=== PATIENT | female | born 1980 | race Caucasian/White ===

== ENCOUNTER 2018-09-13 17:05 | Emergency (ER) | payer OTHER ==
--- NOTE | 2018-09-13 17:25 | ED Physician Documentation ---
PD HPI URI - Stated complaint Stated Complaint: FEVER/COUGH/BODY ACHES - Chief complaint Chief Complaint: Heent - History obtained from History obtained from: Patient - History of Present Illness Timing - onset: Other (Her children were sick before her. Over the last 5 days she has had body aches, fever, nonproductive cough, sore throat and ear pain. 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 - Present Medications Home Medications: Ambulatory Orders Medication Instructions Recorded Confirmed guaiFENesin/CODEINE [Robitussin AC] 5 - 10 ml PO Q6H PRN #120 ml 09/13/18 - Allergies Allergies/Adverse Reactions: Allergies Allergy/AdvReac Type Severity Reaction Status Date / Time No Known Drug Allergies Allergy Verified 09/13/18 17:12 - Social History Does the pt smoke?: No Smoking Status: Never smoker Does the pt drink ETOH?: No Does the pt have substance abuse?: No - Immunizations Immunizations are current?: Yes - POLST Patient has POLST: No PD ED PE NORMAL - Vitals Vital signs reviewed: Yes - General General: Alert and oriented X 3, No acute distress, Well developed/nourished - HEENT HEENT: PERRL, EOMI, Ears normal, Pharynx benign - Neck Neck: Supple, no meningeal sign, No bony TTP - Respiratory Respiratory: No respiratory distress, Clear bilaterally - Abdomen Abdomen: Non tender - Neuro Neuro: Alert and oriented X 3, Normal speech Results - Vitals Vitals: Vital Signs - 24 hr 09/13/18 17:11 Temperature 36 C L Heart Rate 107 H Respiratory 18 Rate Blood Pressure 130/83 H O2 Saturation 100 Oxygen O2 Source Room air - Rads (name of study) 2V CHEST Radiology: EMP read contemporaneously (NORMAL) PD MEDICAL DECISION MAKING - ED course ED course: Healthy young woman with 5 days of illness consistent with influenza. Really no point in testing or treating for same at this juncture given the time course and lack of efficacy of antivirals at this point. Given the protracted course I will obtain a chest x-ray to make sure there is no concomitant pneumonia. Departure - Departure Disposition: 01 Home, Self Care Clinical Impression: Influenza Condition: Good Record reviewed to determine appropriate education?: Yes Instructions: ED Flu Prescriptions: guaiFENesin/CODEINE [Robitussin AC] 5 - 10 ml PO Q6H PRN #120 ml PRN Reason: Cough Comments: If not better in the next 3-4 days please return or see YOUr physician for recheck. Return for new or worsening symptoms. Your blood pressure was elevated today on check into the emergency department. This does not mean that you have hypertension, it is a common phenomenon to come to the emergency department and have elevated blood pressure. I recommend that you see your primary care physician within the week to have it rechecked when you are feeling better. Forms: Activity restrictions
--- NOTE | 2018-09-13 20:03 | XRAY Report ---
Reason: cough Procedure Date: 09/13/2018 Accession Number: [id number] / [id number] Procedure: XR - Chest 2 View X-Ray CPT Code: 98111 FULL RESULT: EXAM: CHEST RADIOGRAPHY EXAM DATE: 09/13/2018 07:37 PM. CLINICAL HISTORY: Cough. COMPARISON: None. TECHNIQUE: 2 views. FINDINGS: Lungs/Pleura: No focal opacities evident. No pleural effusion. No pneumothorax. Normal volumes. Mediastinum: Heart and mediastinal contours are unremarkable. Other: None. IMPRESSION: Normal 2-view chest radiography. RADIA
[2018-09-13] MEDS ORDERED: guaiFENesin/CODEINE 5 ML UDC PO STA (20:06)
[2018-09-13 20:13] VITALS: BP 128/82
== END 2018-09-13 20:12 | disposition home or self-care (01) ==
LOC: ED 17:05
DX: J11.1 Influenza due to unidentified influenza virus with other respiratory manifestations (principal); R03.0 Elevated blood-pressure reading, without diagnosis of hypertension
CPT/HCPCS: 71046; 99283; A9270

== ENCOUNTER 2021-06-01 10:38 | Emergency (ER) | payer OTHER ==
--- NOTE | 2021-06-01 11:11 | XRAY Report ---
PROCEDURE: Wrist 4 View RT INDICATIONS: Trauma TECHNIQUE: 4 views of the wrist were acquired. COMPARISON: None FINDINGS: Bones: No fractures or dislocations. No suspicious bony lesions. Scaphoid view: Scaphoid is intact. Soft tissues: No suspicious soft tissue calcifications. IMPRESSION: No fracture. No osseous lesion. If there are persistent symptoms or continued clinical concern for pa thology, then repeat plain film radiographs (7-10 days) or advanced imaging (CT, MR, bone scan) shoul d be considered for further evaluation. Reviewed by: Maria E Humphrey MD, PhD on 06/01/2021 10:09 AM CARLOS Approved by: Maria E Humphrey MD, PhD on 06/01/2021 10:09 AM CARLOS Station ID: [id number]
--- NOTE | 2021-06-01 11:50 | ED Physician Documentation ---
PD HPI PED TRAUMA - Stated complaint Stated complaint: R ARM INJURY - Chief complaint Chief Complaint: Trauma Ext - History obtained from History obtained from: Patient - History of Present Illness Mechanism of injury: Other (wrist slammed in a door) Where injury happened: Other (work) Timing - onset: Today Injury(ies) location: Right Upper Extremity Quality of pain: Pain Associated symptoms: No: LOC, AMS, Amnesia Symptoms improve with: Rest Worsens with: Movement, Palpation Similar symptoms before: Has not had sx before Recently seen: Not recently seen - Additional information Additional information: Previously well 40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 She had a child who was misbehaving today and this child apparently slammed her wrist in a doorway. She has odonnell on the radial and ulnar surface of the wrist from the door jam. She is able to move the wrist in a range of motion she does have pain associated with this. 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 - Present Medications Home Medications: Ambulatory Orders Medication Instructions Recorded Confirmed guaiFENesin/CODEINE [Robitussin AC] 5 - 10 ml PO Q6H PRN #120 ml 09/13/18 - Allergies Allergies/Adverse Reactions: Allergies Allergy/AdvReac Type Severity Reaction Status Date / Time No Known Drug Allergies Allergy Verified 06/01/21 10:48 - Social History Does the pt smoke?: No Smoking Status: Never smoker Does the pt drink ETOH?: No Does the pt have substance abuse?: No - Immunizations Immunizations are current?: Yes - POLST Patient has POLST: No PD ED PE NORMAL - Vitals Vital signs reviewed: Yes (tachy and hypertensive ) - General General: Alert and oriented X 3, No acute distress, Well developed/nourished - HEENT HEENT: Atraumatic, PERRL, EOMI - Respiratory Respiratory: No respiratory distress - Derm Derm: Normal color, Warm and dry, No rash - Extremities Extremities: No deformity, Other (There is swelling and point tenderness to the radial and ulnar surface of the wrist on the right hand. There is a karen consistent with the door jam in the door on the surfaces. She is able to flex and extend the wrist with pain and no crepitance or deformity to suggest fracture. n/v intact) - Neuro Neuro: Alert and oriented X 3, social work assistant 2-12 intact, No motor deficit, No sensory deficit, Normal speech Eye Opening: Spontaneous Motor: Obeys Commands Verbal: Oriented GCS Score: 15 - Psych Psych: Normal mood, Normal affect Results - Vitals Vitals: Vital Signs - 24 hr 06/01/21 10:42 Temperature 36.6 C Heart Rate 103 H Respiratory 16 Rate Blood Pressure 129/84 H O2 Saturation 99 Oxygen O2 Source Room air - Rads (name of study) wrist Radiology: Prelim report reviewed (Impression: No fracture. No osseous lesion.), EMP read indepedently, See rad report PD MEDICAL DECISION MAKING - ED course Complexity details: reviewed results, re-evaluated patient, considered differential, d/w patient ED course: 40-year-old female with a contusion to her right wrist has no evidence of fracture on plain films she is placed into a splint for comfort and instructed to wear it for 1 day to 2 weeks. Departure - Departure Disposition: 01 Home, Self Care Clinical Impression: Contusion of right wrist Qualifiers: Encounter type: initial encounter Qualified Code(s): S60.211A - Contusion of right wrist, initial encounter Condition: Stable Instructions: ED Contusion Upper Ext Follow-Up: [facility] [Provider Group]
[2021-06-01 12:52] VITALS: BP 125/80
== END 2021-06-01 13:34 | disposition home or self-care (01) ==
LOC: ED 10:38
DX: S60.211A Contusion of right wrist, initial encounter (principal); W23.0XXA Caught, crushed, jammed, or pinched between moving objects, initial encounter; Y99.0 Civilian activity done for income or pay
CPT/HCPCS: 99282; 99283

== ENCOUNTER 2021-08-08 08:00 | Outpatient (CLI) | payer OTHER | END 2021-08-08 23:59 | LOC: LAB 08:00 | PROVIDERS: ATTEND Physician Assistant Medical | DX: R05.9 Cough, unspecified (principal); Z20.822 Contact with and (suspected) exposure to COVID-19 ==

== ENCOUNTER 2022-05-18 15:48 | Outpatient (CLI) | payer OTHER ==
--- NOTE | 2022-05-18 16:28 | SLEEP CARE CONSULTATION ---
Information from patient questionnaire entered by Lizz Alvarado. I have reviewed and concur with the information entered by Lizz Alvarado. This document represents the service I personally performed and the decisions made by me, Britni Linton ARNP. History of Present Illness Service Date and Time: 05/18/2022 1548 Reason for Visit: New patient Accompanied by: Beulah Chief Complaint: reports: Unrefreshed sleep, Snoring, Fatigue, Frequent awakenings at night Date of Onset: 7 yrs Usual bedtime: 9pm Time it takes to fall asleep: 2min Snores at night: Yes Observed to quit breathing while asleep: Yes Sleeps alone due to snoring: No Number of times waking at night: 5-6 Reasons for waking at night: reports: Snoring, Other (uknown). denies: Choking, Gasping for air Toss, Turn, or Twitch while sleeping: Yes Recalls having dreams: No (not often) Usually gets out of bed at: 530am; weekends 0700 Feels refreshed in the morning: No Morning headache: Yes (4-5 times a week; takes advil in morning and will resolve) Sleepy or fatigued during the day: Yes Ever fallen asleep while driving: No Takes day naps: Yes (maybe on the weekends) Dreams during day naps: No Prior sleep studies: No Additional HPI information: I had the pleasure of seeing TABBY DOCKERY today regarding the possibility of her having a sleep disorder. Her current complaints are unrefreshed sleep, snoring, fatigue and frequent night awakenings. She states that for last 10 years she has been complaining to her doctors about being tired all the time. She has had her thyroid and other things checked without any findings for her fatigue. She was talking to a friend who has sleep apnea and asked her a few questions. She states she has always snored and her has noted her to stop breathing in her sleep. 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 Patient is and lives in [place]. Have you smoked in the past 12 months: No Alcohol use: No Caffeine use: Yes Caffeine amount and frequency: 1 coffee 2-3 times per week Family History Family history of sleep disordered breathing: No Family Hx Sleep Apnea: Father: Snoring, Sleep apnea - Untreated, Sibling: Snoring, Grandparent: Snoring Allergies and Home Medications Known drug allergies: No Drug allergies reviewed: Yes (NKDA) Home medication list reviewed: Yes (no daily medications) Review of Systems Weight gain over past 5 years: 30 Gastrointestinal: reports: heartburn Ear/Nose/Throat: reports: nasal congestion Immunologic: reports: sneezing, allergies to food or environment (seasonal) Physical Exam Vital signs obtained and entered by: LIZZ Tanner MA Blood Pressure: 114/72 (left arm) Cuff size: regular Heart Rate: 99 O2 Saturation: 99 Height: 5 ft 5 in Weight: 216 lb Body Mass Index: 35.9 BMI Classification: Obese Neck circumference: 14.5 Mouth and throat: narrow oropharynx Soft palate: long Hard palate: normal Uvula: normal Uvula visualization: 25% Mallampati Class III Tongue: enlarged in size with teeth odonnell on lateral edges Tonsils: small Neck: normal w/o lymphadenopathy or thyromegaly Heart: regular rate and rhythm Lungs: clear bilaterally Impression and Plan 1. Suspected Obstructive Sleep Apnea-Hypopnea Syndrome, as suggested by a history of loud and irregular snoring, observed cessation of breath while asleep, morning headache, frequent awakening during the night, unrefreshed sleep, and excessive daytime sleepiness. Narrow oropharynx and obesity are common predisposing factors for obstructive sleep apnea-hypopnea syndrome. I recommend proceeding to polysomnography to confirm the diagnosis and to assess severity. If the patient has significant sleep disordered breathing, a manual CPAP titration study will also be performed to find the optimal treatment pressure. I informed the patient of what the sleep studies involve and after some discussion, obtained agreement to proceed. The pathophysiology of obstr uctive sleep apnea-hypopnea syndrome was discussed with the patient and health risks of cardiovascular and cerebrovascular disease if not treated. Risks of drowsy driving discussed in detail and patient advised to avoid long distance driving and to fur puller at the first sign of drowsiness. Patient agreed to plan. * Schedule polysomnography * Avoid long distance driving or driving when feeling sleepy. * Avoid alcohol, sedative and muscle relaxant around bedtime. * Attempt to lose weight. * Review instructions provided by trained office staff on how to prepare for the sleep study. * Return for follow-up after sleep study completed. Counseling Topics: Weight loss health impact Visit Type: In Office Other Participants: Child Time Spent with Patient (minutes): 31 Provider Statement: I spent 100% of the Face to Face Visit with the patient with greater than 50% spent counseling the patient and coordination of care.
[2022-05-18 16:35] VITALS: BP 114/72
== END 2022-05-18 15:49 | disposition home or self-care (01) ==
LOC: SC 15:48
PROVIDERS: ATTEND Nurse Practitioner Family
DX: R06.83 Snoring (principal); R06.81 Apnea, not elsewhere classified; R51.9 Headache, unspecified; G47.8 Other sleep disorders; G47.10 Hypersomnia, unspecified; E66.9 Obesity, unspecified; Z68.35 Body mass index [BMI] 35.0-35.9, adult
CPT/HCPCS: 99203; 99212

== ENCOUNTER 2022-06-21 12:25 | Outpatient (CLI) | payer OTHER | END 2022-06-21 12:26 | disposition home or self-care (01) | LOC: SC 12:25 | PROVIDERS: ATTEND Nurse Practitioner Family | DX: G47.33 Obstructive sleep apnea (adult) (pediatric) (principal) | CPT/HCPCS: 95806 ==

== ENCOUNTER 2022-07-20 14:19 | Outpatient (CLI) | payer OTHER ==
--- NOTE | 2022-07-20 14:56 | SLEEP CARE CONSULTATION ---
Information from patient questionnaire entered by Lizz Alvarado. I have reviewed and concur with the information entered by Lizz Alvarado. This document represents the service I personally performed and the decisions made by , Britni Linton ARNP. History of Present Illness Service Date and Time: 07/20/2022 1419 Initial [place] Sleepiness Scale score: 7 (05/18/2022) Current [place] Sleepiness Scale score: 13 (07/20/22) Additional HPI information: TABBY DOCKERY returns for follow up and results of the recently performed home sleep study. I explained the pathophysiology behind obstructive sleep apnea. We then spent quite a bit of time discussing different treatment options. For mild obstructive sleep apnea, surgery and oral appliance are alternatives to nasal CPAP therapy but in moderate or severe cases, nasal CPAP is the most effective and reliable treatment. Because apnea is primarily in supine position, then positional management therapy could be effective. Methods discussed such as positioning with pillows to prevent supine sleep. I reviewed the impact of weight changes on sleep apnea and strongly recommended losing weight. After some discussion, the patient opted to go with the nasal CPAP therapy. Nasal autoCPAP set at 4-15 cmH20 will be ordered with rationale explained. A manual titration study will be ordered if unable to find optimal pressure with office adjustments. I explained how CPAP machine works and what to expect when using the machine. Using CPAP every night in order to get used to it was emphasized. Patient advised to put CPAP mask on before getting into bed so as not to fall asleep wi thout CPAP. To assist acclimation to CPAP use, it could also be used for a short time during day while reading or watching TV. The patient was instructed to call the CPAP supplier to discuss any mechanical problem that may occur. If the mask given is uncomfortable or is difficult to keep on through the night even with adjustment, contact the CPAP supplier as many will replace with another mask style if notified before 30 days. If snoring or perceives is not getting enough air or too much air from the machine, notify this office. Patient counseled not drink alcohol less than 4 hours before bedtime as it can increase snoring and apnea. Patient was cautioned about risks of drowsy driving until sleepiness symptoms resolve. Patient denies drowsy driving. Sleep Study - Results Type of Sleep Study: Home sleep study (COMPLETED 06/21/22) Prior sleep studies: No Polysomnography/Home Sleep Study results: Physician Impression: The quality of the study is good. The length of the study is adequate (> 240 minutes). Please also see the tabulated and graphic data. 1. Obstructive Sleep Apnea-Hypopnea (ICD-10 G47.33), mild, with an AHI of 6.8/hr and diya SaO2 of 89%. During the study, the patient had 46 apneas (46 obstructive, 0 central, 0 mixed) and 24 hypopneas. The longest episode lasted 79.0 seconds. The respiratory events occurred almost exclusively during supine sleep (supine AHI was 18.5 and non-supine, 4.98). Allergies and Home Medications Drug allergies reviewed: Yes (NKDA) Home medication list reviewed: Yes (no changes) Review of Systems Review of systems same as previous: Yes (no changes) Physical Exam Vital signs obtained and entered by: LIZZ Tanner MA Blood Pressure: 124/72 (LEFT ARM) Cuff size: long Heart Rate: 95 O2 Saturation: 95 Height: 5 ft 5 in Weight: 218 lb Body Mass Index: 36.2 BMI Classification: Obese Impression and Plan 1. Obstructive Sleep Apnea-Hypopnea Syndrome, mild, with lowest oxygen saturation of 89%. Obviously this is the cause of the patients symptoms of unrefreshed sleep, and excessive daytime sleepiness. As mentioned above, the patient will be started on nasal autoCPAP therapy with pressure set at 4-15 cmH2 O. Compliance guidelines also reviewed. A copy of compliance guidelines will be given for reference at check out. Because the apnea is more severe supine, I instructed to avoid sleeping supine using pillow positioning until able to start CPAP use. * Nasal auto CPAP therapy, pressure at 4-15 cm H2O. * Attempt to lose weight. * Avoid alcohol consumption near bedtime. * Avoid supine sleep until using CPAP. * The patient is again cautioned about driving until sleepiness completely resolves. * Return one month after CPAP obtained. I will assess response to therapy and compliance at that time. Counseling Topics: Sleeping position, Weight loss health impact Visit Type: In Office Time Spent with Patient (minutes): 23 Provider Statement: I spent 100% of the Face to Face Visit with the patient with greater than 50% spent counseling the patient and coordination of care.
[2022-07-20 14:57] VITALS: BP 124/72
== END 2022-07-20 14:20 | disposition home or self-care (01) ==
LOC: SC 14:19
PROVIDERS: ATTEND Nurse Practitioner Family
DX: G47.33 Obstructive sleep apnea (adult) (pediatric) (principal); E66.9 Obesity, unspecified; Z68.36 Body mass index [BMI] 36.0-36.9, adult
CPT/HCPCS: 99212; 99213

== ENCOUNTER 2022-11-29 16:59 | Outpatient (CLI) | payer OTHER ==
--- NOTE | 2022-11-29 12:54 | Sleep Patient Instructions ---
Sleep Center Visit Summary - Patient Visit Information Reason for Visit: First compliance with CPAP therapy visit. - Patient Instructions Additional Instructions: You were here for follow up of CPAP therapy. You will be continued on [CPAP] therapy with pressure at [] cmH2O. You should follow up with sleep care in [1-2 months] months. You may contact us sooner for any questions or concerns. - Clinic Information Contact: [facility] [address] [place] [id number] [email or web address] T: [phone]
--- NOTE | 2022-11-29 16:50 | SLEEP CARE CONSULTATION ---
Information from patient questionnaire entered by Briana Alvarado. I have reviewed and concur with the information entered by Briana Avlarado. This document represents the service I personally performed and the decisions made by , Britni Linton ARNP. History of Present Illness Service Date and Time: 11/29/2022 1540 Previous diagnosis: Mild, Obstructive Sleep Apnea-Hypopnea Syndrome AHI: 6.8 (in 2021) Reason for follow up: first compliance Equipment type: CPAP (RESMED Airsense 11, s/u 06/2022) Equipment obtained from: [employer] ([employer]) Mask style: Nasal Mask brand: [employer] Backup mask available: No (will keep old mask when replaced) Prior sleep studies: No Type of Sleep Study: Home sleep study (COMPLETED 06/21/22) HPI additional information: TABBY DOCKERY was diagnosed to have mild, AHI 6.8, obstructive sleep apnea- hypopnea syndrome and returns via telehealth video visit today for CPAP therapy first compliance follow-up. Sleep Study - Results Type of Sleep Study: Home sleep study (COMPLETED 06/21/22) Prior sleep studies: No CPAP Compliance Data - Data Reviewed with Patient Average duration of nightly device use: 9 HRS 8 MIN Compliance rate %: 100 (10/29/22-11/27/22; days used) Current pressure setting (cmH2O): 4-15 (median 7.2, avg 9.8, max 10.9) Average residual AHI: 0.3 Central apnea: 0 Obstructive apnea: 0.2 Subjective Patient concerns: denies: aerophagia, mask discomfort, air blowing in eyes, mask leak noise, condensation in mask/hose, nasal congestion, dry mouth, nose, throat, epistaxis Observed to snore while using device: No Current pressure setting perceived as: comfortable On therapy, patient: reports: sleeping better, awakening more refreshed, being more awake and alert during the day, more rested overall. denies: drowsiness while driving Initial [place] Sleepiness Scale score: 7 (05/18/2022) Current [place] Sleepiness Scale score: 6 (11/29/22) Allergies and Home Medications Known drug allergies: No Drug allergies reviewed: Yes Home medication list reviewed: Yes (no changes) Allergy and home medication list: Allergies No Known Drug Allergies Allergy (Verified 11/28/22 14:30) Review of Systems Review of systems same as previous: Yes (no changes) Physical Exam Vital signs obtained and entered by: BRIANA Tanner MA Height: 5 ft 3 in (PER PT) Weight: 190 lb (PER PT) Body Mass Index: 33.6 BMI Classification: Obese Impression and Plan 1. Obstructive Sleep Apnea-Hypopnea Syndrome, mild, with good treatment compliance and good apnea control. On CPAP therapy, the patient has better sleep quality and is more rested overall. Patient has significant improvement of their sleep apnea and is satisfied with current CPAP therapy. The patients pressure will be changed to autoCPAP 7-10 cmH20 to reflect pressures being used. Patient advised to contact me if pressure change is uncomfortable so that it can be adjusted. Goals for apnea control discussed. Patient's apnea severity and rationale for treatment to reduce apnea, improve sleep quality and reduce cardiovascular and cerebrovascular events was reviewed. 2. Obesity, unspecified. Currently patients BMI is 33.6. Obesity increases the risk of apnea, CPAP pressure requirements and overall health risks especially cardiovascular and diabetes. Thus patient is advised to lose weight. * Change auto CPAP pressure to 7-10 cmH2O * Notify me if snoring with mask or feeling that the pressure is too much or too little * Attempt to lose weight * Call this office if any problems using CPAP * Return for follow up in 1-2 months, or sooner if concerns arise Counseling Topics: Weight loss health impact Visit Type: In Office Patient Location: Car Location of Provider: Office Patient agrees and consents to this telehealth visit type: Yes Patient agrees to have their insurance billed: Yes Time Spent with Patient (minutes): 15 Provider Statement: I spent 100% of the Face to Face Visit with the patient with greater than 50% spent counseling the patient and coordination of care.
== END 2022-11-29 17:00 | disposition home or self-care (01) ==
LOC: SC 16:59
PROVIDERS: ATTEND Nurse Practitioner Family
DX: G47.33 Obstructive sleep apnea (adult) (pediatric) (principal); E66.9 Obesity, unspecified; Z68.33 Body mass index [BMI] 33.0-33.9, adult

== ENCOUNTER 2022-12-07 12:36 | Emergency (ER) | payer OTHER ==
[2022-12-07 12:45] VITALS: BP 144/79
--- NOTE | 2022-12-07 13:05 | XRAY Report ---
PROCEDURE: Knee 4 View LT INDICATIONS: Trauma TECHNIQUE: 4 views of the left knee(s) were acquired. COMPARISON: None. FINDINGS: Bones: No fractures or dislocations. No suspicious bony lesions. Doubtful narrowing of joint spac e and possible osteophytic lipping. Soft tissues: No knee joint effusion. No suspicious soft tissue calcifications or masses. IMPRESSION: No acute bony abnormality. If there remains a high clinical concern for fracture, consider cross-sect ional imaging now. If pain persists, consider repeat x-ray in 10-14 days or cross-sectional imaging. Reviewed by: Candido Esquivel on 12/07/2022 1:04 PM PDT Approved by: Candido Esquivel on 12/07/2022 1:04 PM PDT Station ID: [id number]
--- NOTE | 2022-12-07 15:59 | ED Physician Documentation ---
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 Patient fell forward directly onto her patellar area.) Where injury occurred: Work Timing - onset: Today Timing - details: Abrupt onset, Still present Worsened by: Moving, Palpating Associated symptoms: Swelling (front of the knee). 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 - Present Medications Home Medications: Ambulatory Orders Medication Instructions Recorded Confirmed No Known Home Medications 07/20/22 07/20/22 - Allergies Allergies/Adverse Reactions: Allergies Allergy/AdvReac Type Severity Reaction Status Date / Time Penicillins Allergy Unknown Verified 12/07/22 12:44 - Social History Does the pt smoke?: No Smoking Status: Never smoker Does the pt drink ETOH?: No Does the pt have substance abuse?: No - Immunizations Immunizations are current?: Yes - POLST Patient has POLST: No PD ED PE NORMAL - Vitals Vital signs reviewed: Yes - General General: Alert and oriented X 3, No acute distress, Well developed/nourished - Derm Derm: Normal color, Warm and dry - Extremities Extremities: Other (left anterior knee with effusion and swelling. No noted laxity on cruciate/collateral testing. No deformity. ) - Neuro Neuro: No motor deficit, No sensory deficit Results - Vitals Vitals: Vital Signs - 24 hr 12/07/22 12/07/22 12/07/22 12:42 16:50 17:04 Temperature 36.6 C 36.6 C Heart Rate 113 H 74 Respiratory 16 16 16 Rate Blood Pressure 144/79 H O2 Saturation 100 99 Oxygen O2 Source Room air - Rads (name of study) left knee Relevant Findings:: Prelim report reviewed, EMP independent interpretation of test (no noted fractures. Small effusion noted. ), See rad report PD Medical Decision Making - ED course Complexity details: reviewed results, considered differential (fell onto knee with swelling and pain. No twisting. Presume contusion with effusion. Does not seem to have ligamentous injury. ), d/w patient Departure - Departure Disposition: 01 Home, Self Care Clinical Impression: Knee contusion Qualifiers: Encounter type: initial encounter Laterality: left Qualified Code(s): S80.02XA - Contusion of left knee, initial encounter Condition: Stable Record reviewed to determine appropriate education?: Yes Comments: Your does not show any fractures. On exam it seems most likely just impacted and bruised with some swelling and fluid in the knee joint. I do not get the sense of torn ligaments or cartilage based on the exam. See how it feels after the swelling is down over several days. He continues the knee brace to have limited range of motion and support of the knee when up and around as needed. Limited standing and walking over the next 2 to 3 days. Ice often. Ibuprofen or naproxen 2 or 3 times daily. Recheck if not improved well over the next several days to week. Forms: Activity restrictions Discharge Date/Time: 12/07/22 17:04
[2022-12-07] MEDS ORDERED: IBUPROFEN 800 MG TABLET PO STA (16:27)
== END 2022-12-07 17:04 | disposition home or self-care (01) ==
LOC: ED 12:36
DX: S80.02XA Contusion of left knee, initial encounter (principal); W18.39XA Other fall on same level, initial encounter; Y93.F9 Activity, other caregiving; Y92.219 Unspecified school as the place of occurrence of the external cause; Y99.0 Civilian activity done for income or pay
CPT/HCPCS: 73564; 99283; A9270; 1040M

== ENCOUNTER 2023-09-30 09:50 | Emergency (ER) | payer OTHER ==
--- NOTE | 2023-09-30 10:11 | ED Physician Documentation ---
PD HPI URI - Stated complaint Stated Complaint: COUGH - Chief complaint Chief Complaint: Resp - History obtained from History obtained from: Patient - History of Present Illness Timing - onset: How many weeks ago (5) Timing duration: Weeks (5) Timing details: Gradual onset, Still present Associated symptoms: Chills, Productive cough Contributing factors: No: COPD / asthma Improves by: No: Medication (tried OTC cough and cold meds.) Recently seen: Clinic (seen in Clinic and Rx Z-pack without much improvement. No other meds.) Review of Systems Nose: reports: Congestion. 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 - Present Medications Home Medications: Ambulatory Orders Medication Instructions Recorded Confirmed Albuterol Sulf [Ventolin Hfa 1 - 2 puffs INH Q4HR PRN #1 each 09/30/23 Inhaler] Doxycycline Hyclate 100 mg PO BID 7 Days #14 cap 09/30/23 dexAMETHasone [Decadron] 4 mg PO DAILY #5 tablet 09/30/23 - Allergies Allergies/Adverse Reactions: Allergies Allergy/AdvReac Type Severity Reaction Status Date / Time Penicillins Allergy Unknown Verified 12/07/22 12:44 - Social History Does the pt smoke?: No Smoking Status: Never smoker Does the pt drink ETOH?: No Does the pt have substance abuse?: No - Immunizations Immunizations are current?: Yes - POLST Patient has POLST: No PD ED PE NORMAL - Vitals Vital signs reviewed: Yes - General General: Alert and oriented X 3, No acute distress, Well developed/nourished - Neck Neck: Supple, no meningeal sign, No adenopathy - Cardiac Cardiac: No murmur. No: RRR (regular but mild tachycardic) - Respiratory Respiratory: No respiratory distress. No: Clear bilaterally (ecp wheezing noted. no coarse sounds. ) Results - Vitals Vitals: Oxygen O2 Source Room air PD Medical Decision Making - ED course Complexity details: considered differential (no coarse sounds on exam. Will treat as brhonciitis given duration and symptoms. So did not see need for xray. ), d/w patient Departure - Departure Disposition: 01 Home, Self Care Clinical Impression: Persistent cough, Acute bronchitis Condition: Stable Record reviewed to determine appropriate education?: Yes Instructions: ED Upper Resp Infec Abx Tx Prescriptions: Albuterol Sulf [Ventolin Hfa Inhaler] 1 - 2 puffs INH Q4HR PRN #1 each PRN Reason: Shortness Of Air/Wheezing dexAMETHasone [Decadron] 4 mg PO DAILY #5 tablet Doxycycline Hyclate 100 mg PO BID 7 Days #14 cap Comments: Your lungs sound clear and the oxygenation is good. It does not seem clinically like a pneumonia. However your symptoms are suggestive of a bronchitis and given the duration of it, more inclined to think a bacterial cause. We will go with an antibiotic called doxycycline to use twice daily for the next week. In addition, as this may be just a persistent irritation of the bronchioles from the prior viral URI, would also want to go with medication for the bronchial inflammation/irritation. This would be combination of dexamethasone steroid daily for the next 5 days and an albuterol inhaler 2 to 3 puffs 4 times daily for the next several days to week. I would anticipate improvement over the next several days and resolved by 4 to 5 days. I sent your prescriptions to your preferred pharmacy. Ulet-pgl-cscmamp cough medicine such as Robitussin DM or such are okay to add to these. Forms: PCP List Discharge Date/Time: 09/30/23 12:12
[2023-09-30] MEDS: dexAMETHasone 4 MG TABLET PO STA (11:23)
[2023-09-30] MEDS: DOXYCYCLINE 100 MG TABLET PO STA (11:24)
[2023-09-30] MEDS: ALBUTEROL 1 PUFF INH STA (11:29)
[2023-09-30 12:13] VITALS: BP 117/68; O2SAT 98
== END 2023-09-30 12:12 | disposition home or self-care (01) ==
LOC: ED 09:50
DX: R05.3 Chronic cough (principal); J20.9 Acute bronchitis, unspecified
CPT/HCPCS: 94640; 94664; 99283; 99284; A9270; J8540

== ENCOUNTER 2023-10-23 12:59 | Emergency (ER) | payer OTHER ==
[2023-10-23 13:06] VITALS: O2SAT 100
[2023-10-23 13:34] LABS: BASOPHILS # (AUTO) 0.1 10^3/uL (0.0-0.1); BASOPHILS % (AUTO) 0.6 %; EOSINOPHILS # (AUTO) 0.1 10^3/uL (0.0-0.7); EOSINOPHILS % (AUTO) 0.6 %; HCT - HEMATOCRIT 37.1 % (37.0-47.0); HGB - HEMOGLOBIN 12.7 g/dL (12.0-16.0); LYMPHOCYTES # (AUTO) 1.6 10^3/uL (1.5-3.5); LYMPHOCYTES % (AUTO) 18.6 %; MEAN CORPUSCULAR HEMOGLOBIN 31.2 pg (27.0-31.0); MEAN CORPUSCULAR HGB CONC 34.2 g/dL (32.0-36.0); MEAN CORPUSCULAR VOLUME 91.2 fL (81.0-99.0); MEAN PLATELET VOLUME 10.9 fL (7.9-10.8); MONOCYTES # (AUTO) 0.6 10^3/uL (0.0-1.0); MONOCYTES % (AUTO) 6.6 %; NEUTROPHILS # (AUTO) 6.2 10^3/uL (1.5-6.6); NEUTROPHILS % (AUTO) 73.5 %; PLT - PLATELET COUNT 240 10^3/uL (130-450); RED BLOOD COUNT 4.07 10^6/uL (4.20-5.40); RED CELL DISTRIBUTION WIDTH 13.1 % (12.0-15.0); WHITE BLOOD COUNT 8.5 x10^3/uL (4.8-10.8)
[2023-10-23 13:46] LABS: BILIRUBIN,URINE NEGATIVE (NEGATIVE); GLUCOSE, URINE (UA) NEGATIVE (NEGATIVE); KETONES,URINE (UA) NEGATIVE (NEGATIVE); LEUKOCYTE ESTERASE, URINE NEGATIVE (NEGATIVE); NITRITE,URINE NEGATIVE (NEGATIVE); OCCULT BLOOD,URINE NEGATIVE (NEGATIVE); PH,URINE 6.5 PH (5.0-7.5); PROTEIN,URINE NEGATIVE (NEGATIVE); UROBILINOGEN,URINE 1 (NORMAL) E.U./dL (NORMAL)
[2023-10-23 13:47] LABS: CLARITY,URINE CLEAR (CLEAR); HCG UR QUAL NEGATIVE
[2023-10-23 13:49] LABS: ALBUMIN 4.5 g/dL (3.2-5.5); ALBUMIN/GLOBULIN RATIO 1.6 (1.0-2.2); BILIRUBIN,TOTAL 1.7 mg/dL (0.2-1.0); CALCIUM 9.9 mg/dL (8.5-10.3); CREATININE 0.7 mg/dL (0.6-1.3); POTASSIUM 3.7 mmol/L (3.5-4.5); TOTAL PROTEIN 7.4 g/dL (6.4-8.9)
--- NOTE | 2023-10-23 14:40 | ED Physician Documentation ---
PD HPI ABD PAIN - Stated complaint Stated Complaint: RT ABD PX - Chief complaint Chief Complaint: Abd Pain - History obtained from History obtained from: Patient - History of Present Illness Timing - onset: How many weeks ago (2) Timing - duration: Weeks (2) Timing - details: Still present (intermittent right flank pain with some cloudy urine for 2 weeks, more regular the past 3 nights, typically about 2-3 AM gets awakened by it.), Intermittant Quality: Sharp, Pain Location: RUQ Radiation: Right flank Associated symptoms: Nausea. 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 : None HEENT: None Psych: None Musculoskeletal: None Derm: None - Past Surgical History 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 - Present Medications Home Medications: Ambulatory Orders Medication Instructions Recorded Confirmed Albuterol Sulf [Ventolin Hfa 1 - 2 puffs INH Q4HR PRN #1 each 09/30/23 10/23/23 Inhaler] Docusate Sodium 100Mg Capsule 100 mg PO DAILY #20 cap 10/23/23 [Colace 100Mg Capsule] Meloxicam [Mobic] 7.5 mg PO BID 10 Days #20 tablet 10/23/23 Oxycodone HCl/Acetaminophen 1 each PO Q6H PRN #14 tablet 10/23/23 [Percocet 5-325 mg Tablet] polyethylene glycoL 3350(BULK) 17 gm PO BID PRN #1 each 10/23/23 [Miralax] - Allergies Allergies/Adverse Reactions: Allergies Allergy/AdvReac Type Severity Reaction Status Date / Time Penicillins Allergy Unknown Verified 10/23/23 15:21 - Social History Does the pt smoke?: No Smoking Status: Never smoker Does the pt drink ETOH?: No Does the pt have substance abuse?: No - Immunizations Immunizations are current?: Yes - POLST Patient has POLST: No PD ED PE NORMAL - Vitals Vital signs reviewed: Yes - General General: Alert and oriented X 3, No acute distress (does not appear in pain now. She states just mild aching currently. ), Well developed/nourished - Cardiac Cardiac: RRR, No murmur - Respiratory Respiratory: No respiratory distress, Clear bilaterally - Abdomen Abdomen: Normal bowel sounds, Soft, Non distended, No organomegaly, Other (not tender currently in abd. No percussion nor rebound tenderness. ) - Female Female : Deferred - Rectal Rectal: Deferred - Back Back: No CVA TTP (currently not tender to percussion nor palpation in flank. ), No spinal TTP - Derm Derm: Normal color, Warm and dry, No rash Results - Vitals Vitals: Oxygen O2 Source Room air - Labs Labs: Laboratory Tests 10/23/23 10/23/23 10/23/23 13:10 13:28 13:28 WBC 8.5 RBC 4.07 L Hgb 12.7 Hct 37.1 MCV 91.2 MCH 31.2 H MCHC 34.2 RDW 13.1 Plt Count 240 MPV 10.9 H Neut # (Auto) 6.2 Lymph # (Auto) 1.6 [place] # (Auto) 0.6 Eos # (Auto) 0.1 Baso # (Auto) 0.1 Absolute Nucleated RBC 0.00 Nucleated RBC % 0.0 Sodium 137 Potassium 3.7 Chloride 103 Carbon Dioxide 28 Anion Gap 6.0 BUN 9 Creatinine 0.7 Estimated GFR (MDRD) 91 Glucose 94 Calcium 9.9 Total Bilirubin 1.7 H AST 15 ALT 11 Alkaline Phosphatase 77 Total Protein 7.4 Albumin 4.5 Globulin 2.9 Albumin/Globulin Ratio 1.6 Lipase 12 Urine Color YELLOW Urine Clarity CLEAR Urine pH 6.5 Ur Specific [place] 1.020 Urine Protein NEGATIVE Urine Glucose (UA) NEGATIVE Urine Ketones NEGATIVE Urine Occult Blood NEGATIVE Urine Nitrite NEGATIVE Urine Bilirubin NEGATIVE Urine Urobilinogen 1 (NORMAL) Ur Leukocyte Esterase NEGATIVE Ur Microscopic Review NOT INDICATED Urine Culture Comments NOT INDICATED Urine HCG, Qual NEGATIVE - Rads (name of study) abd/pelvic CT Relevant Findings:: Prelim report reviewed (moderate stool burden. No other acute process. ), EMP independent interpretation of test PD Medical Decision Making - ED course Complexity details: reviewed results (Labs without notable abnormal. Particular UA without infection. LFTs and lipase are okay (with minimal bili 1.7 c/w her [place] disease). CT without obvious GB abnormal and no kidney cysts/masses/hydro nor stones in ureters. Moderate stool burden, though unlikel to give patterned pains as she has.), considered differential (the intermittent nature of the pain during the night gives consideration of biliary colic, but is in position that could be kidney or urteral as well. I felt CT would be more inclusive of scope compared to US of just GB. Shared decision with pt. ), d/w patient Departure - Departure Disposition: Home, Self Care Clinical Impression: Right flank pain, Right sided abdominal pain Condition: Stable Record reviewed to determine appropriate education?: Yes Instructions: ED Abdominal Pain Female Non-Specific Abdominal Pain Follow-Up: [facility] [Provider Group] Prescriptions: Docusate Sodium 100Mg Capsule [Colace 100Mg Capsule] 100 mg PO DAILY #20 cap polyethylene glycoL 3350(BULK) [Miralax] 17 gm PO BID PRN #1 each PRN Reason: Constipation Meloxicam [Mobic] 7.5 mg PO BID 10 Days #20 tablet Oxycodone HCl/Acetaminophen [Percocet 5-325 mg Tablet] 1 each PO Q6H PRN #14 tablet PRN Reason: pain Comments: Your blood test send urine test are normal with the exception of a slightly elevated bilirubin at 1.7 which is apparently typical for you. No signs of kidney infection or pancreatic or liver inflammation otherwise. Your CT scan did not show any obvious kidney stones, gallstones, gallbladder inflammation, other acute problems. They do specify a normal appendix. There was a possible small cyst on your right ovary but not a large enough to be of consequence. No signs of internal bleeding or leakage like from the cyst. They do comment on a moderate fecal load so would make sense to go with some stool softener over the next several days or so. I wrote for some MiraLAX to use 2-3 times daily for the next several days and a docusate to use daily for the next 7 to 10 days. I would also suggest some anti-inflammatories twice daily over the next several days to week. Add Tylenol 500 650 mg every 4-6 hours if needed for pain. I wrote for stronger pain medicine also to use periodically if needed when the pain is severe. I am not sold on the fecal load/mild constipation being the cause of your pain given the pattern and timing. I thought it was going to be gallbladder but no signs of gallstones or gallbladder thickening. If your symptoms have not improved with the above treatments over the next few days (with using the pain medicine for worse pain at times so you are staying comfortable or treated) then I would follow-up with your primary care with decision of more focused evaluation of your gallbladder such as a HIDA scan to see if its over spasming etc. [facility] I am prescribing a short course of narcotic pain medication for you. These are potentially dangerous and addictive medications that should be used carefully. These medications may constipate you. Take an nweu-rln-ifbfciu stool softener such as docusate twice daily with plenty of water while taking these medications. If you go 24 hours without a bowel movement, take [id number] MiraLAX, per package instructions. Do not drink or drive while taking these medications. If you received narcotic or sedating medications while in the emergency department do not drive for 24 hours. Store this medication in a safe, secure place and out of reach of children. It is a violation of federal law to give or sell this medication to another person or to use in a manner other than prescribed. The ED will not refill narcotic prescriptions, including prescriptions lost or stolen. You can dispose of unwanted medications at the [facility]'s office or at several pharmacies such as [facility]. Forms: PCP List Discharge Date/Time: 10/23/23 18:00
[2023-10-23] MEDS ORDERED: iohexoL-300 100 ML VIAL ONE (16:03)
[2023-10-23] MEDS: KETOROLAC 15 MG/ML VIAL IVP STA (16:04)
[2023-10-23] MEDS: iohexoL-300 100 ML VIAL IVP ONE (16:40)
--- NOTE | 2023-10-23 17:03 | CT Report ---
PROCEDURE: Abdomen/Pelvis W INDICATIONS: right abd to flank pain 3 nights in a row CONTRAST: 100 OMNI 300 TECHNIQUE: After the administration of intravenous contrast, a CT scan of the abdomen and pelvis was performed. Images were recorded and evaluated at appropriate window settings. Reformats: coronal and sagittal. F or radiation dose reduction, the following was used: automated exposure control, adjustment of mA and /or kV according to patient size. COMPARISON: None FINDINGS: Image quality: Diagnostic Lower chest: Lung bases appear unremarkable. Mildly patulous distal esophagus. Questionable small hia richie hernia versus epiphrenic diverticulum. Heart size within normal limits Liver: Unremarkable. Subcentimeter lesions are too small to characterize, usually cysts. Gallbladder and biliary system: Unremarkable, nondilated Pancreas: No ductal dilation Spleen: Nonenlarged Adrenals: No discrete nodules Kidneys: No solid mass or hydronephrosis Vessels and lymph nodes: The main portal vein is patent. No abdominal aortic aneurysm. No pathologic lymph nodes by size criteria. Bowel and peritoneum: No evidence of small bowel obstruction. Colonic diverticula. The appendix is no ndilated. There is no pathologic ascites. Moderate fecal loading. Body wall: There is a fat containing Periumbilical hernia and mild rectus diastasis. Pelvis: Bladder is unremarkable. Suspected right corpus luteum cyst. Reproductive organs are better e valuated on ultrasound if there is clinical concern. Overall appearance on CT is physiologic. Bones: Degenerative changes. No acute or suspicious findings. IMPRESSION: Moderate fecal loading. No small bowel obstruction. Nondilated appendix. No hydronephrosis. Other findings as above. No acute abnormality. Reviewed by: Terrell Porter MD on 10/23/2023 5:01 PM PDT Approved by: Terrell Porter MD on 10/23/2023 5:01 PM PDT Station ID: [id number]
[2023-10-23 17:23] VITALS: BP 128/82
== END 2023-10-23 18:00 | disposition home or self-care (01) ==
LOC: ED 12:59
DX: R10.11 Right upper quadrant pain (principal); K59.00 Constipation, unspecified; Z79.899 Other long term (current) drug therapy
CPT/HCPCS: 36415; 74177; 80053; 81003; 81025; 83690; 85025; 96374; 99283; 99284; Q9967; 81001; 87086